=== PATIENT | female | born 1945 ===

== ENCOUNTER → 2022-12-08 | Day surgery (SDC) | payer OTHER | END | disposition home or self-care (01) | LOC: ADM 12-05 14:00 → AMB-ENDOS 06:28 | PROVIDERS: ATTEND Surgery | DX: D12.2 Benign neoplasm of ascending colon (principal); K62.82 Dysplasia of anus; K57.30 Diverticulosis of large intestine without perforation or abscess without bleeding; R19.4 Change in bowel habit; K64.8 Other hemorrhoids; Z20.822 Contact with and (suspected) exposure to COVID-19 ==